=== PATIENT | female | born 1960 | race Caucasian/White ===

== ENCOUNTER 2017-02-16 23:15 | Emergency (ER) | payer OTHER ==
[2017-02-17] MEDS ORDERED: NS 1,000 ML IV ONE (00:34)
[2017-02-17] MEDS ORDERED: ZOFRAN IV ONE ×2 (00:34→03:41)
[2017-02-17 01:13] LABS: MANUAL DIFF NEEDED? NO
[2017-02-17 01:20] LABS: BASO% 0.2 % (0.0-0.8); EOS# 0.04 X1000 (0.0-0.7); EOS% 0.5 % (0.0-10.0); HEMATOCRIT 42.5 % (37.0-47.0); HEMOGLOBIN 14.2 g/dL (12.0-16.0); IMM GRAN# 0.03 X1000 (0.0-0.04); IMM GRAN% 0.3 % (0.0-0.5); LYMPH% 23.2 % (20.5-51.1); MCH 31.2 PG (27-31); MCHC 33.4 g/dL (33-37); MCV 93.4 FL (81-99); MONO# 0.65 X1000 (0.11-0.59); MONO% 7.5 % (1.7-9.3); MPV 10.4 FL (7.4-10.4); NEUT% 68.3 % (42.2-75.2); PLT 252 X1000 (130-400); RBC 4.55 XMIL (4.2-5.4)
[2017-02-17 01:27] LABS: ACETONE SERUM NEGATIVE (NEGATIVE)
[2017-02-17 02:05] LABS: AGAP 14; ALBUMIN 3.7 g/dL (3.5-5.0); ALKALINE PHOSPHATASE 73 U/L (32-104); AMYLASE 11 U/L (20-200); BUN 10 mg/dL (8-22); CALCIUM 9.2 mg/dL (8.8-10.2); CHLORIDE 98 mmol/L (98-107); COSMO 280; GOT 13 U/L (10-30); GPT 18 U/L (10-36); LIPASE 8 U/L (13-60); POTASSIUM 3.8 mmol/L (3.5-5.1); SODIUM 140 mmol/L (136-145); TCO2 28 mmol/L (25-35); TOTAL BILIRUBIN 0.27 mg/dL (0.20-1.00); TOTAL PROTEIN 7.6 g/dL (6.3-8.3)
[2017-02-17 04:37] LABS: URINE CULTURE NEEDED? NO; URINE MICRO REVIEW NEEDED? NO; URINE SOURCE CLEAN CATCH
[2017-02-17 04:42] LABS: BILIRUBIN URINE NEGATIVE (NEGATIVE); BLOOD URINE NEGATIVE (NEGATIVE); COLOR YELLOW; GLUCOSE URINE 300 mg/dL (NEGATIVE); LEUKOCYTES URINE NEGATIVE (NEGATIVE); NITRITE URINE NEGATIVE (NEGATIVE); PROTEIN URINE 50 mg/dL (NEGATIVE); TURBIDITY URINE CLEAR (CLEAR); UR EPITHELIAL CELLS <10 /HPF (<10); URINE BACTERIA NEGATIVE /HPF; URINE RBC <10 /HPF (<10); URINE WBC <10 /HPF (<10); UROBILINOGEN URINE NORMAL (NORMAL)
--- NOTE | 2017-02-17 05:00 | PROVIDER DOCUMENTATION ---
HPI-Abdominal Pain/GI Problem - General Chief Complaint: N/V/D Stated Complaint: V/D DIABETIC Time Seen by Provider: 02/17/17 00:39 Source: patient Allergies/Adverse Reactions: Patient Allergies Allergy/AdvReac Type Severity Reaction Status Date / Time promethazine HCl * AdvReac NAUSEA/VOMI Verified 02/17/17 00:26 [From Phenergan] TING Home Medications: Home Medication List Medication Instructions Recorded Confirmed Last Taken Type Pregabalin [Lyrica] 150 mg PO TID 06/28/13 02/17/17 02/14/17 History Venlafaxine HCl [Venlafaxine HCl 75 mg PO BID 06/28/13 02/17/17 02/14/17 History ER] Omeprazole [Prilosec] 20 mg PO DAILY@0700 #0 capsule 07/02/13 02/17/17 02/14/17 Rx Fenofibrate 160 mg PO DAILY 03/13/14 02/17/17 02/14/17 History Gabapentin 800 mg PO TID 03/13/14 02/17/17 02/16/17 History PRAVAstatin [Pravachol] 40 mg PO QHS 03/13/14 02/17/17 02/14/17 History Insulin Lispro [Humalog] 40 unit SUBQ TID 05/09/15 02/17/17 02/16/17 History Ticagrelor [Brilinta] 90 mg PO BID 05/09/15 02/17/17 02/14/17 History Zolpidem [Ambien] 10 mg PO QHS 05/09/15 02/17/17 02/14/17 History Albuterol Sulfate Inhaler 2 puff INH Q6H PRN PRN 04/23/16 02/17/17 02/14/17 History [Ventolin Hfa] Canagliflozin [Invokana] 300 mg PO DAILY 04/23/16 02/17/17 02/14/17 History Fluticasone/Salmeterol [Advair 1 puff INH BID 04/23/16 02/17/17 02/14/17 History 500-50 Diskus] Insulin Degludec [Tresiba 160 unit SQ DAILY 04/23/16 02/17/17 02/14/17 History Flextouch U-100] Ondansetron [Zofran Odt] 4 mg PO 4XDAY PRN PRN #20 02/17/17 Unknown Rx tab.rapdis Sulfamethoxazole/Trimethoprim 2 each PO BID #40 tablet 02/17/17 Unknown Rx [Bactrim Ds Tablet] - History of Present Illness-ABD Abdominal Pain Onset Location: reports: epigastric Pain Radiation: reports: epigastric Quality of Pain: reports: dull, fullness Severity in ED: reports: mild Onset/Duration: reports: unsure Timing: reports: still present Activities at Onset: reports: light activity Exposure to sick contacts?: Yes Modifying Factors: improves with: nothing Associated Symptoms: reports: anxiety Last BM: unsure Rectal Bleeding: reports: none Rectal Pain: reports: none Emesis Description: reports: none Bruising or Bleeding Gums?: No Similar Symptoms Previously?: Yes Recently seen or treated by another doctor?: No Review of Systems - Adult - REVIEW OF SYSTEMS - ADULT Constitutional: reports: no symptoms reported Eyes: reports: no symptoms reported Ears, Nose, Mouth & Throat: reports: no symptoms reported Cardiovascular: reports: no symptoms reported Respiratory: reports: no symptoms reported Gastrointestinal: reports: no symptoms reported Genitourinary: reports: no symptoms reported Musculoskeletal: reports: no symptoms reported Integumentary: reports: no symptoms reported Neurological: reports: no symptoms reported Psychiatric: reports: no symptoms reported Endocrine: reports: no symptoms reported Hematologic/Lymphatic: reports: no symptoms reported Allergic/Immunologic: reports: no symptoms reported All Other Systems: Reviewed and Negative Past History - Adult - PAST MEDICAL HISTORY-ADULT Review of Records: reports: Old Records Reviewed, Nursing Assessment Review, Medications Reviewed, Social history reviewed & non-contributory. Major Childhood Illnesses: reports: denies history Cardiovascular: reports: denies history Respiratory: reports: COPD Gastrointestinal: reports: denies history Obstetrical/Gynecological: reports: denies history Genitourinary: reports: kidney disease Musculoskeletal: reports: denies history Neurological: reports: headaches/migraines Endocrine/Immune: reports: Diabetes Other Conditions: reports: denies history - PRIOR SURGERIES/PROCEDURES Surgical/Procedure History: reports: hysterectomy, tonsillectomy, other (left leg amputation; pituitary tumor) - PRIOR HOSPITALIZATIONS Prior Hospitalizations: reports: for other non-related - IMMUNIZATION STATUS Childhood Immunizations: See Nurse Assessment Flu Vaccine: See Nurse Assessment - FAMILY HISTORY Family History: reviewed, not pertinent Physical Exam-General - PHYSICAL EXAM-ADULT Initial Vital Signs Reviewed: Yes - CONSTITUTIONAL General Appearance: appears well - EYES Eyes: PERRL/EOMI - HEAD, EARS, NOSE, MOUTH & THROAT HENMT: normocephalic/atraumatic - NECK Neck: non-tender - CARDIOVASCULAR Cardiovascular: normal peripheral pulses - GASTROINTESTINAL (ABDOMEN) Abdominal Exam: tenderness - LYMPHATIC Lymphatic: no adenopathy - MUSCULOSKELETAL Back Exam: normal inspection Extremity: normal range of motion - SKIN Integumentary: normal color - NEUROLOGIC 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
[2017-02-17 05:15] VITALS: BP 117/52
--- NOTE | 2017-02-17 09:16 | Diag Imaging Result Document ---
PROCEDURE NAME: CT ABD/PELVIS W/ IV CONT ONLY - 02/17/2017 CT ABDOMEN AND PELVIS WITH INTRAVENOUS CONTRAST: A CT dose reduction protocol was used. COMPARISON: 01/22/2015. FINDINGS: There is an anterior right upper lobe pulmonary nodule measuring 2.2 cm. Heart size is normal. There is significant fatty change of the liver. The gallbladder, pancreas, spleen, adrenals, and kidneys are normal. No bowel obstruction or inflammation. Urinary bladder and rectum are normal. Uterus is absent. Bony structures are intact. IMPRESSION: 1. Right upper lobe pulmonary nodule. Chest CT recommended. 2. Hepatic steatosis. [facility]
== END 2017-02-17 05:15 | disposition home or self-care (01) ==
LOC: ED 23:15
DX: K52.9 Noninfective gastroenteritis and colitis, unspecified (principal); R11.2 Nausea with vomiting, unspecified; R10.13 Epigastric pain; J44.9 Chronic obstructive pulmonary disease, unspecified; R51 Headache; E11.9 Type 2 diabetes mellitus without complications; Z89.612 Acquired absence of left leg above knee; Z79.899 Other long term (current) drug therapy; Z79.4 Long term (current) use of insulin
CPT/HCPCS: 74177; 80053; 81001; 82009; 82150; 82948; 83690; 85025; J2405; J7030; Q9967